=== PATIENT | male | born 1960 | race Caucasian/White ===

== ENCOUNTER 2016-11-17 16:22 | Inpatient (IN) | payer BC ==
--- NOTE | ~2016-11-17 | HP ---
History And Physical [id number] [place]. [address] NAME: MICH ATKINSON : 58 STATUS : ADM IN [facility]#: [id number] AGE: 56 ADM/REG DATE : 11/17/16 MR#: [id number] REPORT SERV DATE: 11/17/16 DICTATED BY: HAN LACY DATE: 11/17/16 REPORT STATUS : Draft TRANSCRIBED BY: MODCamron DATE: 11/17/16 DATE OF ADMISSION: 11/17/2016 ADMISSION DIAGNOSIS: Acute kidney injury. CHIEF COMPLAINT: Not feeling well over the past month. HISTORY OF PRESENT ILLNESS: Mr. Atkinson is a 56-year-old male with no previous medical history, who states that over the past month he has had a new job site in which he has been working long hours, 12 to 14 hours, dressed in heavy gear and has had a significant amount of sweating. He is a electric welder. He has been working seven days a week. After two weeks worth of this type of work, he also noted to have leg cramps. After two weeks, he could not work this hard any longer. He mentioned that he tried to just get better on his own. He has been trying to work in the last two weeks, but has not been doing very well, he possibly may have had the flu with some of the symptoms he underwent. He notes that there has never been no foamy urine, no urine that has been dark tea colored according to the . He went to an urgent care center which they noted his creatinine to be around 9, couple of days later that is when they called him with the results and told him to go to the emergency room. In the emergency room, he was found to have a creatinine of almost 16 with a bicarb of 11 and a potassium of 5.9. The patient is also very acidotic. PAST MEDICAL HISTORY: None. HOME MEDICATIONS: None. ALLERGIES: ASPIRIN. SOCIAL HISTORY: The patient is a electric welder. He is . He has a very remote history of smoking, occasional alcohol. No illicit drug use. Also of note, the patient was not taking NSAIDs prior to this. FAMILY HISTORY: The patient states his family history is essentially healthy. No chronic kidney disease: REVIEW OF SYSTEMS: All pertinent review of systems is reviewed and is otherwise negative. PHYSICAL EXAMINATION: VITAL SIGNS: Temperature 97.3, heart rate 80, blood pressure currently 201/105, respiratory rate 16. GENERAL: The patient is alert and oriented, no acute distress. HEENT: No JVD. No carotid bruits. NECK: Supple. PULMONARY: Lungs are clear to auscultation bilaterally, no wheezing. CARDIAC: Regular rate, no murmurs. ABDOMEN: Soft, nontender, nondistended. No bowel sounds, but there is also no bruits, no History And Physical [address] [address] NAME: MICH ATKINSON : 58 STATUS : ADM IN [facility]#: [id number] AGE: 56 ADM/REG DATE : 11/17/16 MR#: [id number] REPORT SERV DATE: 11/17/16 DICTATED BY: HAN LACY DATE: 11/17/16 REPORT STATUS : Draft TRANSCRIBED BY: MODCamron DATE: 11/17/16 guarding, no rebound. EXTREMITIES: Extremity is cold, adequate capillary refill. Peripheral pulses noted. No cyanosis. SKIN: No libido reticularis. LABORATORY EXAMINATION: No leukocytosis. Hemoglobin 10.4, platelet count 240. Potassium 5.9, bicarb 11, BUN 165, creatinine 15.6. Lipase 1250, pH 7.11, pCO2 of 22, PO2 of 105. Urinalysis shows no ketones, 50 of glucose, significant proteinuria greater than 500, occasional bacteria, no leukocyte or nitrite. IMAGING: None. ASSESSMENT AND PLAN: Mr. atkinson is a 56-year-old gentlemen with a past medical history noted above, who presents to the intensive care unit with hyperkalemia, chronic kidney disease, most likely with acute changes with acidosis, uremia. 1. Acute kidney injury: As his urinalysis shows proteinuria, moderate blood, he most likely has chronic disease and now has manifested with significant hypertension and the findings of acute kidney failure. Nephrology has seen the patient. We will conduct a thorough workup. The Patient is getting IV fluids 150 mL of normal saline. We have placed a vascular access catheter to start dialysis now. We will check the renal ultrasound to rule out any hydronephrosis. Control blood pressure. 2. Hypertension: As noted above. 3. Hyperkalemia: As noted above. 4. Anemia: Most likely secondary to chronic kidney disease. 5. Diet: Advance diet as tolerated. 6. Code status: The patient is currently full code. HFQ/MODL Han Lacy MD / [id number] CC: Han Lacy MD
--- NOTE | ~2016-11-17 | IDS ---
Interim Discharge Summary [facility] [address] [place]. [address] NAME: MICH ATKINSON : 58 STATUS : ADM IN [facility]#: [id number] AGE: 56 ADM/REG DATE : 11/17/16 MR#: [id number] REPORT SERV DATE: 11/22/16 DICTATED BY: DATE: REPORT STATUS : Draft TRANSCRIBED BY: MODL DATE: 11/21/16 ADMISSION DATE: 11/17/2016 DISCHARGE DATE: The patient was admitted to the [facility], transferred out of the Intensive Care Unit the evening of November 18 with care assumed by the Hospitalist Service on November 19. CONSULTANTS: Include Nephrology. CURRENT DIAGNOSES: 1. Hemodialysis, acute kidney injury versus more likely end-stage renal disease at diagnosis. 2. Uremia. 3. Metabolic acidosis. 4. Hypertension. 5. Hyperkalemia. 6. Anemia-likely due to chronic kidney disease. 7. Vitamin D deficiency. 8. Proteinuria and microscopic hematuria. 9. Secondary hyperparathyroidism. IMAGING: Renal ultrasound November 17, demonstrating diffuse marked increased echogenicity of the renal cortex consistent with medical renal disease. Benign cysts bilaterally. PROCEDURES: Vas-Cath placement November 17 for emergent initiation of hemodialysis. Subsequent dialysis catheter placement on November 21. PERTINENT LABS: Blood gas at admission pH 7.11, pCO2 22, PO2 105, oxygen saturation 96% on room air. Initial potassium 5.9, now 4.8, initial bicarbonate 11, now 22, initial creatinine 15.6, now 9.6, glucose values normal. Calcium at 7, phosphorus 10.8, now 7.9, liver enzymes normal, lipase 1775, ferritin 794, folate 18.6, B12 1041. Complement levels were normal. Hemoglobin A1c 5.7, lactate negative, PTH 370, vitamin D 17, serum protein electrophoresis, immunofixation with mild lambda restriction. Hepatitis serologies negative. HIV negative. White blood cell count normal, hemoglobin values ranging from 7.7 to 7.9. Platelets normal. Anti-GBM negative. ANCA panel pending. Double-stranded DNA pending. Urinalysis with occasional bacteria. Spot urine protein 127.3, with urine creatinine 73. BRIEF HISTORY: For full details please see the previously dictated history of present illness by Dr. Soto and race relations adviser consult note by Dr. Julien Mckeon. This is a 56-year-old, white male with no known previous medical history, who does not see a physician with any regularity. He went to a walk-in clinic, for "feeling bad." Labs there revealed a creatinine of 10 and a BUN of 96. The patient was instructed to go to the emergency department. He failed to follow up in the ER until approximately one week later, Interim Discharge Summary [address] [address] NAME: MICH ATKINSON : 58 STATUS : ADM IN [facility]#: [id number] AGE: 56 ADM/REG DATE : 11/17/16 MR#: [id number] REPORT SERV DATE: 11/22/16 DICTATED BY: DATE: REPORT STATUS : Draft TRANSCRIBED BY: MODL DATE: 11/21/16 when he was experiencing progressive weakness, leg cramps. On presentation to the ER, he was noted to have severe anion gap metabolic acidosis with a pH of 7.11 and a bicarbonate of 11. BUN was in excess of 165 with a creatinine of 15. Urinalysis showed moderate blood, and protein greater than 500 mg/dL. He had hyperkalemia and was admitted to the [facility] with Nephrology consultation for emergent hemodialysis. HOSPITAL COURSE: The patient was admitted to the Intensive Care Unit on November 17 and , started on dialysis, and stabilized. He was discharged to the floor the evening of November 18 and the hospitalist service assumed care on November 19. The patient has continued to dialyze, per Nephrology since then. He has multiple send out labs pending including ANCA and double stranded DNA, as well as a 24-hour urine protein and 24-hour urine protein electrophoresis. His renal ultrasound demonstrates probable long-standing chronic kidney disease. The exact etiology is unclear, but he is felt to have possible hypertensive nephrosclerosis per the Nephrology team. He has been initiated on blood pressure medications, phosphate binders, and instructed on the importance of adherence to a renal diet. His was instructed about this as well. He had a dialysis catheter placed today and outpatient hemodialysis planning is pending. The ultimate discharge disposition will be per Nephrology. FIONA/RODRIGO Rolando Riggins M.D. / [id number] CC: Rolando Riggins M.D.
--- NOTE | ~2016-11-17 | OP ---
Record Of Operation [facility] [address] [place]. [address] NAME: MICH ATKINSON : 58 STATUS : ADM IN [facility]#: [id number] AGE: 56 ADM/REG DATE : 11/17/16 MR#: [id number] REPORT SERV DATE: 11/22/16 DICTATED BY: CLAUDIO ARVIZU DATE: 11/21/16 REPORT STATUS : Draft TRANSCRIBED BY: MODL DATE: 11/21/16 DATE OF PROCEDURE: 11/21/2016 STEWARD/STEWARDESS DECK: None. PREPROCEDURE DIAGNOSIS: End-stage renal disease. POSTPROCEDURE DIAGNOSIS: End-stage renal disease. PROCEDURE PERFORMED: Placement of right IJ PermCath, 19 cm curved HemoSplit catheter. ANESTHESIA: MAC and local. SPECIMENS: None. ESTIMATED BLOOD LOSS: Minimal. COMPLICATIONS: None. DESCRIPTION OF PROCEDURE: The patient was brought to the operating room and placed supine position on the operating room table. The patient had a MAC anesthetic without complications. The right neck and chest were prepped and draped in sterile fashion. A time out was performed. Identified the correct patient, procedure, and site. We began by using ultrasound to identify the right IJ vein. It was compressible and free of thrombus. We anesthetized the skin and accessed the vein under ultrasound guidance. Once we had access, a wire was passed down through the cardiac chambers into the IVC and the needle was removed. We selected a site for catheter exit, and anesthetized from the chest exit site all the way to the neck entry site. We made an incision on the chest and then tunneled a 19 cm curved catheter from the chest site to the neck site. We then used a series of dilators to dilate up the skin and vein tract at the neck. We ended by placing the break away sheath over the wire into position under fluoroscopy and removing the wire and dilator. The catheter was then inserted into the sheath and advanced into position. Once in position, the sheath was split and removed while keeping the catheter in place. The catheter was in good position with no neck kink, the catheter aspirated and flushed with ease. The catheter was loaded with heparin and end caps were placed appropriately. We affixed the catheter to the chest wall using interrupted nylon suture. The skin at the neck site was closed with interrupted Monocryl and Dermabond. Sterile dressing was applied. The patient tolerated the procedure well. He was awakened and transferred to recovery in stable condition. NIEVES/RODRIGO Claudio Arvizu MD Record Of [address] [address] NAME: MICH ATKINSON : 58 STATUS : ADM IN PAT#: [id number] AGE: 56 ADM/REG DATE : 11/17/16 MR#: [id number] REPORT SERV DATE: 11/22/16 DICTATED BY: CLAUDIO ARVIZU DATE: 11/21/16 REPORT STATUS : Draft TRANSCRIBED BY: RODRIGO DATE: 11/21/16 / [id number] CC: Claudio Arvizu MD
--- NOTE | ~2016-11-17 | CN ---
Consultation Report [facility] [address] [place]. [address] NAME: MICH ATKINSON : 58 STATUS : ADM [facility]#: [id number] AGE: 56 ADM/REG DATE : 11/17/16 MR#: [id number] REPORT SERV DATE: 11/17/16 DICTATED BY: JULIEN MCKEON DATE: 11/17/16 REPORT STATUS : Draft TRANSCRIBED BY: MODCamron DATE: 11/17/16 NEPHROLOGY CONSULT DATE OF CONSULTATION: 11/17/2016 CHIEF COMPLAINT: Acute kidney insufficiency. HISTORY OF PRESENT ILLNESS: Mr. Atkinson is a 56-year-old white male, who presented to walk-in clinic approximately one week ago with complaints of "feeling bad." Workup at the walk-in clinic revealed that he had a creatinine of approximately 10 and a BUN of 96. He was noted at this time to have a glucose of 97, total bilirubin of 0.2, hemoglobin 9.1, and platelet counts were within normal limits. The patient was instructed to go the ER. The patient refused to go to the ER until today approximately one week later. The patient generally has not seen a physician all his life. He was feeling bad for approximately two weeks. He denies any gross hematuria, kidney stones, flank pain, or rash. He does not take any over- the-counter medications or prescriptions. He denies any ingestions. On presentation here to the ER, the patient is afebrile, hemodynamically stable. However, he is noted to have severe anion gap metabolic acidosis with a pH of 7.11. He denies any falls, trauma, or ingestions. He does not have a known history of diabetes. Denies any abdominal pain. He was also noted to have a creatinine of approximately 15 and BUN of 165. Urinalysis shows moderate blood and protein greater than 500 mg/dL. PAST MEDICAL HISTORY: None. PAST SURGICAL HISTORY: None. FAMILY MEDICAL HISTORY: No known renal disease. ALLERGIES: NO KNOWN DRUG ALLERGIES. HOME MEDICATIONS: None. SOCIAL HISTORY: . Lives in [facility]. FAMILY MEDICAL HISTORY: No known kidney disease. REVIEW OF SYSTEMS: Complete review of systems was done and negative otherwise as stated in the HPI. PHYSICAL EXAMINATION: VITAL SIGNS: Temperature is 97.7, pulse is 85, and blood pressure is 185/79. GENERAL: He is in no apparent distress, but has some mild shaking. NEURO: He is alert and oriented x3. He moves all 4 extremities. SKIN: No petechiae, purpura, or rash noted. Consultation Report [address] [place]. [address] NAME: MICH ATKINSON : 58 STATUS : ADM [facility]#: [id number] AGE: 56 ADM/REG DATE : 11/17/16 MR#: [id number] REPORT SERV DATE: 11/17/16 DICTATED BY: JULIEN MCKEON. DATE: 11/17/16 REPORT STATUS : Draft TRANSCRIBED BY: MODCamron DATE: 11/17/16 NECK: No JVP or lymphadenopathy. Trachea is midline. CARDIOVASCULAR: Regular rate and rhythm. No gallops, rubs, or murmurs. RESPIRATORY: Clear to auscultation bilaterally without increased respiratory rate. ABDOMEN: Soft, nontender, nondistended. Positive bowel sounds. EXTREMITIES: No peripheral edema. PSYCH: Appropriate mood and affect. VASCULAR: +2 radial and dorsal pedal pulses. ASSESSMENT: 1. Acute kidney insufficiency secondary to unknown etiology. Primary etiologies in the differential diagnosis at this time include obstructive uropathy, rapidly progressive glomerulonephritis, or progressive to chronic kidney disease due to some chronic disease, nephrotic syndrome or nephritic syndrome, or hypertensive nephrosclerosis. The patient denies any ingestions. 2. Proteinuria and microscopic hematuria. 3. Hypertension. 4. Hyperkalemia. PLAN: 1. Emergent hemodialysis for maintenance hemodialysis tomorrow. 2. Bicarb, IV calcium, insulin, D50. 3. Lab, see orders. 4. Renal ultrasound. Discussed with Dr. Lacy, who has graciously accepted to place Vas-Cath for hemodialysis. SGG/MODL Julien Mckeon M.D. / [id number] CC: Charles Lacy MD UNKNOWN
--- NOTE | ~2016-11-17 | DS ---
Discharge Summary [facility] [address] [facility] [place]. [address] NAME: MICH ATKINSON : 58 STATUS : DIS IN PAT#: [id number] AGE: 56 ADM/REG DATE : 11/17/16 MR#: [id number] REPORT SERV DATE: 11/23/16 DICTATED BY: TANI DOWNING DATE: 11/22/16 REPORT STATUS : Draft TRANSCRIBED BY: MODL DATE: 11/22/16 ADMISSION DATE: 11/17/2016 DISCHARGE DATE: 11/22/2016 DISCHARGE DIAGNOSES: 1. Hemodialysis; acute kidney injury versus end-stage renal disease with unknown etiology at this time. 2. Uremia, now resolved. 3. Metabolic acidosis, now resolved. 4. Hypertension. 5. Hyperkalemia, now resolved. 6. Anemia, most likely due to chronic kidney disease. 7. Vitamin D deficiency. 8. Proteinuria and microscopic hematuria. 9. Secondary hyperparathyroidism. CONSULTANTS DURING THIS HOSPITALIZATION: Dr. Luis Felipe Galvin, of Nephrology. IMAGING: Please refer to the interim summary dictated by Dr. Rolando Riggins. PROCEDURES: Please refer to the interim summary dictated by Dr. Riggins. BRIEF HISTORY OF PRESENT ILLNESS: The patient is a 56-year-old male with no known previous medical history; who does not see a physician on any regular basis; went to a walk-in clinic feeling bad. Labs there revealed a creatinine of 10 and a BUN of 96. This patient was instructed to go to the Emergency Department. He failed to follow up in the ER until approximately one week later when he was experiencing progressive weakness, leg cramps, so he was admitted. For detailed history and physical exam, please see note dictated by Dr. Charles Lacy on 11/18/2015. HOSPITAL COURSE: After being admitted to the hospital, this patient was first placed in the intensive care unit for correction of his potassium, and Nephrology was consulted. Then, this patient was transitioned to the floor and cared for by Dr. Rolando Riggins. Please refer to interim summary dictated by Dr. Riggins. I took over this patient's care on 11/22/2016. This patient was doing well. He has had hemodialysis. His outpatient hemodialysis was scheduled Monday, Monday, and Monday. Dr. Galvin saw the patient in followup and recommended that he could go home with outpatient dialysis and follow up in the Nephrology Clinic. This patient remained stable otherwise and is being discharged in stable condition. DISCHARGE DISPOSITION: Home. DISCHARGE ACTIVITY: As tolerated. DISCHARGE DIET: Low-sodium diet. Discharge Summary [id number] [place]. [address] NAME: MICH ATKINSON : 58 STATUS : DIS IN PAT#: [id number] AGE: 56 ADM/REG DATE : 11/17/16 MR#: [id number] REPORT SERV DATE: 11/23/16 DICTATED BY: TANI DOWNING DATE: 11/22/16 REPORT STATUS : Draft TRANSCRIBED BY: RODRIGO DATE: 11/22/16 DISCHARGE MEDICATIONS: Norvasc 5 mg once daily, PhosLo 667 mg two tablets with meals, labetalol 100 mg twice daily, and Nephro-Vites 1 capsule p.o. with meals. DISCHARGE FOLLOWUP: With [facility] as scheduled with hemodialysis as scheduled. More than 30 minutes were spent planning this patient's discharge, reconciling medications, writing prescriptions, discussing hospital care, and followup with the patient and documenting this discharge. MIKEL/RODRIGO Tani Downing M.D. / [id number] CC: Eden Maharaj M.D. Donald Franklin Jr, M.D.
--- NOTE | ~2016-11-17 | OP ---
Record Of Operation [facility] [address] [place]. [address] NAME: MICH ATKINSON : 58 STATUS : ADM IN [facility]#: [id number] AGE: 56 ADM/REG DATE : 11/17/16 MR#: [id number] REPORT SERV DATE: 11/17/16 DICTATED BY: CHARLES CAMPA DATE: 11/17/16 REPORT STATUS : Draft TRANSCRIBED BY: MODL DATE: 11/17/16 DATE OF PROCEDURE: 11/17/2016 PROCEDURE: Vas-Cath note. INDICATION FOR PROCEDURE: Vascular access for Vas-Cath placement secondary to the fact that the patient has acute what looks to be on chronic kidney failure. PREOPERATIVE DIAGNOSIS: Acute kidney failure. POSTOPERATIVE DIAGNOSIS: Acute kidney failure. PROCEDURE NOTE: The patient was in the intensive care unit, upon discussing the site of insertion, it is our hopes that this patient has temporary access for dialysis, he may be a true end-stage kidney disease patient, and therefore, did not want to go in the subclavian or in the IJ position. We then prepped and draped the right femoral vein in standard fashion. Using ultrasound guidance, after the instillation of lidocaine, we found the vein and placed the guidewire with no difficulty. We dilated using the two dilators in the kit. We then prepped Vas-Cath through the guidewire and in proper position. We had return of venous blood. We then instilled the proper amount of heparin to lock those in its place. We then placed the dressings over the Vas-Cath. OUTCOME: Successful Vas-Cath access into the right femoral region. HFQ/RODRIGO Charles Campa MD / [id number] CC: Charles Campa MD
[2016-11-17 14:04] LABS: BASOPHILS 0.3 %; BASOPHILS ABSOLUTE 0.02 10/3/uL (0.0-0.16); EOSINOPHILS 1.1 %; EOSINOPHILS ABSOLUTE 0.07 10/3/uL (0.0-0.53); HEMOGLOBIN 10.4 g/dL (13.6-17.8); IMMATURE GRANULOCYTES 0.5 %; IMMATURE GRANULOCYTES ABSOLUTE 0.03 10/3/uL (0.0-0.11); LYMPHOCYTES 9.9 %; LYMPHOCYTES ABSOLUTE 0.64 10/3/uL (0.67-4.30); MANUAL DIFF NO %; MEAN CORPUS HGB CONC 34.7 g/dL (32.0-36.0); MEAN CORPUSCULAR HEMOGLOB 29.7 pg (26.0-34.0); MEAN CORPUSCULAR VOLUME 85.7 fL (80-100); MEAN PLATELET VOLUME 8.5 fL (9.2-13.0); MONOCYTES 5.3 %; MONOCYTES ABSOLUTE 0.34 10/3/uL (0.21-1.20); NEUTROPHILS 82.9 %; NEUTROPHILS ABSOLUTE 5.34 10/3/uL (2.02-8.40); PLATELET COUNT 240 10/3/uL (150-400); RBC DISTRIBUTION WIDTH 13.4 % (12.0-16.0); WHITE BLOOD CELLS 6.4 10/3/uL (4.5-10.5)
[2016-11-17 14:19] LABS: ASCORBIC ACID (UR NOT ORDER) NEG (NEG); BILIRUBIN, URINE NEGATIVE (NEG); ER URINALYSIS TAT 0 Hrs 19 Mins; KETONE, URINE NEGATIVE (NEG); LEUKOCYTE ESTERASE(NOT OR NEG (NEG); NITRITE (URINE) NEG (NEG); WBC (NOT ORDERED) (RFLEX) 3 (0-5)
[2016-11-17 14:20] LABS: A/G RATIO 0.7 (0.7-1.9); ALBUMIN 3.5 G/DL (3.5-5.0); ALKALINE PHOSPHATASE 66 U/L (45-117); CALCIUM, SERUM 8.2 MG/DL (8.5-10.4); CHLORIDE, SERUM 108 MMOL/L (96-112); GFR AFRICAN AMERICAN 3 ML/MIN (>=60); GFR NON AFRICAN AMERICAN 3 ML/MIN (>=60); GLOBULIN 4.7 G/DL (2.5-4.1); GLUCOSE, SERUM 108 MG/DL (60-99); POTASSIUM, SERUM 5.9 MMOL/L (3.5-5.3); SGOT(AST) 5 U/L (5-40); SGPT(ALT) 17 U/L (5-65); SODIUM, SERUM 138 MMOL/L (135-148); TOTAL BILIRUBIN 0.3 MG/DL (0-1.2); TOTAL PROTEIN 8.2 G/DL (6.0-8.5)
[2016-11-17 14:35] LABS: BUN (BLOOD UREA NITROGEN) 165 MG/DL (6-23); CO2 (CARBON DIOXIDE) 11 MMOL/L (24-34)
[2016-11-17 15:23] LABS: ALLENS TEST Pos; BE (BASE EXCESS) -20.9 MEQ/L (0 +/- 2.5); CARBOXYHEMOGLOBIN 0.7 % (0-3); HCO3 (ACTUAL BICARBONATE) 6.9 MEQ/L (23-27); HEMOBLOGIN CONTENT 10.6 G/DL (14-18); INSTRUMENT SERIAL # 8087; METHEMOGLOBIN 0.3 % (0-3); O2 CONTENT 14.4 VOL% (18-24); OPERATOR ID 14335; PCO2 (CO2 TENSION) 22 MMHG (35-45); PO2 (O2 TENSION) 105 MMHG (79-93); SAMPLE Arterial; pH 7.11 (7.37-7.43)
[~2016-11-17 16:22] MED LIST: DANDELION ROOT PO; GARLIC PO; MILK THISTLE PO; OTC IRON TABLET PO; PRIN10 PO; RED CLOVER PO; [UNRECOGNIZED DRUG - REMARK] PO
[2016-11-17 21:38] LABS: CALCIUM, SERUM 7.7 MG/DL (8.5-10.4); CHLORIDE, SERUM 108 MMOL/L (96-112); GFR AFRICAN AMERICAN 4 ML/MIN (>=60); GFR NON AFRICAN AMERICAN 3 ML/MIN (>=60); GLUCOSE, SERUM 97 MG/DL (60-99); SODIUM, SERUM 141 MMOL/L (135-148)
[2016-11-17 21:40] LABS: BUN (BLOOD UREA NITROGEN) 158 MG/DL (6-23); CO2 (CARBON DIOXIDE) 11 MMOL/L (24-34)
[2016-11-18 03:22] LABS: ALLENS TEST Pos; BE (BASE EXCESS) -16.7 MEQ/L (0 +/- 2.5); CARBOXYHEMOGLOBIN 0.5 % (0-3); HCO3 (ACTUAL BICARBONATE) 9.7 MEQ/L (23-27); HEMOBLOGIN CONTENT 9.2 G/DL (14-18); INSTRUMENT SERIAL # 8083; METHEMOGLOBIN 0.2 % (0-3); O2 CONTENT 12.6 VOL% (18-24); OPERATOR ID 13415; PCO2 (CO2 TENSION) 25 MMHG (35-45); PO2 (O2 TENSION) 99 MMHG (79-93); SAMPLE Arterial; pH 7.21 (7.37-7.43)
[2016-11-18 06:19] LABS: CALCIUM, SERUM 7.2 MG/DL (8.5-10.4); CHLORIDE, SERUM 107 MMOL/L (96-112); CPK (IF ELEVATED MB BANDS) 115 U/L (0-200); POTASSIUM, SERUM 4.7 MMOL/L (3.5-5.3); SODIUM, SERUM 142 MMOL/L (135-148)
[2016-11-18 06:36] LABS: BASOPHILS 0.2 %; BASOPHILS ABSOLUTE 0.01 10/3/uL (0.0-0.16); CO2 (CARBON DIOXIDE) 15 MMOL/L (24-34); EOSINOPHILS 2.6 %; EOSINOPHILS ABSOLUTE 0.11 10/3/uL (0.0-0.53); LYMPHOCYTES 14.1 %; LYMPHOCYTES ABSOLUTE 0.59 10/3/uL (0.67-4.30); MEAN CORPUS HGB CONC 35.5 g/dL (32.0-36.0); MEAN CORPUSCULAR HEMOGLOB 29.8 pg (26.0-34.0); MEAN CORPUSCULAR VOLUME 84.1 fL (80-100); MEAN PLATELET VOLUME 8.5 fL (9.2-13.0); MONOCYTES 12.6 %; MONOCYTES ABSOLUTE 0.53 10/3/uL (0.21-1.20); NEUTROPHILS 70.5 %; NEUTROPHILS ABSOLUTE 2.95 10/3/uL (2.02-8.40); PLATELET COUNT 210 10/3/uL (150-400); RBC DISTRIBUTION WIDTH 13.1 % (12.0-16.0); WHITE BLOOD CELLS 4.2 10/3/uL (4.5-10.5)
[2016-11-18 06:38] LABS: ALBUMIN 2.7 G/DL (3.5-5.0); GFR AFRICAN AMERICAN 4 ML/MIN (>=60); GFR NON AFRICAN AMERICAN 3 ML/MIN (>=60); GLUCOSE, SERUM 132 MG/DL (60-99)
[2016-11-18 06:41] LABS: HEMATOCRIT 21.7 % (40.0-51.0); HEMOGLOBIN 7.7 g/dL (13.6-17.8); RED CELL COUNT 2.58 10/6/uL (4.7-6.1)
[2016-11-18 06:42] LABS: MANUAL DIFF NO %
[2016-11-18 06:50] LABS: COMPLEMENT C3 107 MG/DL (75-161); COMPLEMENT C4 28.6 MG/DL (16-47); PHOSPHORUS, SERUM 10.8 MG/DL (2.5-4.5)
[2016-11-18 06:53] LABS: BUN (BLOOD UREA NITROGEN) 153 MG/DL (6-23)
[2016-11-18 09:43] LABS: HEPATITIS B SURFACE ANTIGEN NON-REACTIVE (NON-REACT)
[2016-11-18 10:10] LABS: HEPATITIS C ANTIBODY NON-REACTIVE (NON-REACT)
[2016-11-18 10:11] LABS: HEPATITIS B CORE AB IGM NON-REACTIVE (NON-REAC); HIV COMBO NON-REACTIVE (NON REAC)
[2016-11-18 10:12] LABS: HEP A ANTIBODY IGM NON-REACTIVE (NON-REACT)
[2016-11-18 15:11] LABS: BASOPHILS 0.2 %; BASOPHILS ABSOLUTE 0.01 10/3/uL (0.0-0.16); EOSINOPHILS 0.8 %; EOSINOPHILS ABSOLUTE 0.04 10/3/uL (0.0-0.53); HEMATOCRIT 21.7 % (40.0-51.0); HEMOGLOBIN 7.7 g/dL (13.6-17.8); LYMPHOCYTES 7.5 %; LYMPHOCYTES ABSOLUTE 0.36 10/3/uL (0.67-4.30); MEAN CORPUS HGB CONC 35.5 g/dL (32.0-36.0); MEAN CORPUSCULAR HEMOGLOB 29.8 pg (26.0-34.0); MEAN CORPUSCULAR VOLUME 84.1 fL (80-100); MEAN PLATELET VOLUME 8.2 fL (9.2-13.0); MONOCYTES 12.7 %; MONOCYTES ABSOLUTE 0.61 10/3/uL (0.21-1.20); NEUTROPHILS 78.8 %; NEUTROPHILS ABSOLUTE 3.78 10/3/uL (2.02-8.40); PLATELET COUNT 178 10/3/uL (150-400); RBC DISTRIBUTION WIDTH 13.1 % (12.0-16.0); RED CELL COUNT 2.58 10/6/uL (4.7-6.1); WHITE BLOOD CELLS 4.8 10/3/uL (4.5-10.5)
[2016-11-18 15:13] LABS: MANUAL DIFF NO %
[2016-11-19 06:03] LABS: BASOPHILS 0.2 %; BASOPHILS ABSOLUTE 0.01 10/3/uL (0.0-0.16); HEMATOCRIT 22.7 % (40.0-51.0); HEMOGLOBIN 7.9 g/dL (13.6-17.8); IMMATURE GRANULOCYTES 0.2 %; IMMATURE GRANULOCYTES ABSOLUTE 0.01 10/3/uL (0.0-0.11); LYMPHOCYTES 18.4 %; LYMPHOCYTES ABSOLUTE 0.94 10/3/uL (0.67-4.30); MEAN CORPUS HGB CONC 34.8 g/dL (32.0-36.0); MEAN CORPUSCULAR HEMOGLOB 29.6 pg (26.0-34.0); MEAN PLATELET VOLUME 8.5 fL (9.2-13.0); MONOCYTES 11.7 %; NEUTROPHILS 67.5 %; NEUTROPHILS ABSOLUTE 3.45 10/3/uL (2.02-8.40); PLATELET COUNT 201 10/3/uL (150-400); RBC DISTRIBUTION WIDTH 13.1 % (12.0-16.0); RED CELL COUNT 2.67 10/6/uL (4.7-6.1); WHITE BLOOD CELLS 5.1 10/3/uL (4.5-10.5)
[2016-11-19 06:05] LABS: MANUAL DIFF NO %
[2016-11-19 06:24] LABS: ALBUMIN 2.7 G/DL (3.5-5.0); CALCIUM, SERUM 7.2 MG/DL (8.5-10.4); CHLORIDE, SERUM 106 MMOL/L (96-112); POTASSIUM, SERUM 4.1 MMOL/L (3.5-5.3); SODIUM, SERUM 143 MMOL/L (135-148)
[2016-11-19 06:26] LABS: CO2 (CARBON DIOXIDE) 21 MMOL/L (24-34); GFR AFRICAN AMERICAN 6 ML/MIN (>=60); GFR NON AFRICAN AMERICAN 5 ML/MIN (>=60); GLUCOSE, SERUM 105 MG/DL (60-99); PHOSPHORUS, SERUM 8.3 MG/DL (2.5-4.5)
[2016-11-19 06:27] LABS: BUN (BLOOD UREA NITROGEN) 102 MG/DL (6-23)
[2016-11-19 06:47] LABS: INTACT PTH (ICMA) 370.3 PG/ML (10.0-65.0)
[2016-11-19 13:57] LABS: BASOPHILS 0.2 %; BASOPHILS ABSOLUTE 0.01 10/3/uL (0.0-0.16); EOSINOPHILS 1.5 %; EOSINOPHILS ABSOLUTE 0.07 10/3/uL (0.0-0.53); HEMATOCRIT 21.7 % (40.0-51.0); HEMOGLOBIN 7.6 g/dL (13.6-17.8); IMMATURE GRANULOCYTES 0.2 %; IMMATURE GRANULOCYTES ABSOLUTE 0.01 10/3/uL (0.0-0.11); LYMPHOCYTES 14.3 %; LYMPHOCYTES ABSOLUTE 0.66 10/3/uL (0.67-4.30); MEAN CORPUSCULAR HEMOGLOB 29.9 pg (26.0-34.0); MEAN CORPUSCULAR VOLUME 85.4 fL (80-100); MEAN PLATELET VOLUME 8.7 fL (9.2-13.0); MONOCYTES 12.2 %; MONOCYTES ABSOLUTE 0.56 10/3/uL (0.21-1.20); NEUTROPHILS 71.6 %; NEUTROPHILS ABSOLUTE 3.29 10/3/uL (2.02-8.40); PLATELET COUNT 183 10/3/uL (150-400); RED CELL COUNT 2.54 10/6/uL (4.7-6.1); WHITE BLOOD CELLS 4.6 10/3/uL (4.5-10.5)
[2016-11-19 14:03] LABS: MANUAL DIFF NO %
[2016-11-19 14:16] LABS: ALBUMIN 2.8 G/DL (3.5-5.0); BUN (BLOOD UREA NITROGEN) 101 MG/DL (6-23); CALCIUM, SERUM 6.6 MG/DL (8.5-10.4); CHLORIDE, SERUM 103 MMOL/L (96-112); CO2 (CARBON DIOXIDE) 23 MMOL/L (24-34); GFR AFRICAN AMERICAN 6 ML/MIN (>=60); GFR NON AFRICAN AMERICAN 5 ML/MIN (>=60); GLUCOSE, SERUM 148 MG/DL (60-99); PHOSPHORUS, SERUM 7.7 MG/DL (2.5-4.5); POTASSIUM, SERUM 4.2 MMOL/L (3.5-5.3); SODIUM, SERUM 139 MMOL/L (135-148)
[2016-11-19 21:07] LABS: GLOMERULAR BASEMENT MEMBRANE <0.2 AI (<1.0)
[2016-11-20 06:48] LABS: BASOPHILS 0.5 %; BASOPHILS ABSOLUTE 0.03 10/3/uL (0.0-0.16); EOSINOPHILS ABSOLUTE 0.17 10/3/uL (0.0-0.53); HEMATOCRIT 23.1 % (40.0-51.0); HEMOGLOBIN 7.8 g/dL (13.6-17.8); IMMATURE GRANULOCYTES 0.2 %; IMMATURE GRANULOCYTES ABSOLUTE 0.01 10/3/uL (0.0-0.11); LYMPHOCYTES 17.8 %; LYMPHOCYTES ABSOLUTE 1.01 10/3/uL (0.67-4.30); MEAN CORPUS HGB CONC 33.8 g/dL (32.0-36.0); MEAN CORPUSCULAR HEMOGLOB 29.2 pg (26.0-34.0); MEAN CORPUSCULAR VOLUME 86.5 fL (80-100); MEAN PLATELET VOLUME 8.4 fL (9.2-13.0); MONOCYTES 17.3 %; MONOCYTES ABSOLUTE 0.98 10/3/uL (0.21-1.20); NEUTROPHILS 61.2 %; NEUTROPHILS ABSOLUTE 3.47 10/3/uL (2.02-8.40); PLATELET COUNT 175 10/3/uL (150-400); RBC DISTRIBUTION WIDTH 13.2 % (12.0-16.0); RED CELL COUNT 2.67 10/6/uL (4.7-6.1); WHITE BLOOD CELLS 5.7 10/3/uL (4.5-10.5)
[2016-11-20 06:49] LABS: MANUAL DIFF NO %
[2016-11-20 07:08] LABS: ALBUMIN 2.7 G/DL (3.5-5.0); BUN (BLOOD UREA NITROGEN) 67 MG/DL (6-23); CALCIUM, SERUM 7.2 MG/DL (8.5-10.4); CHLORIDE, SERUM 102 MMOL/L (96-112); CO2 (CARBON DIOXIDE) 24 MMOL/L (24-34); CREATININE 8.36 MG/DL (0.70-1.30); GFR AFRICAN AMERICAN 7 ML/MIN (>=60); GFR NON AFRICAN AMERICAN 6 ML/MIN (>=60); GLUCOSE, SERUM 98 MG/DL (60-99); PHOSPHORUS, SERUM 7.1 MG/DL (2.5-4.5); POTASSIUM, SERUM 4.3 MMOL/L (3.5-5.3); SODIUM, SERUM 139 MMOL/L (135-148)
[2016-11-21 08:08] LABS: BASOPHILS 0.4 %; BASOPHILS ABSOLUTE 0.03 10/3/uL (0.0-0.16); EOSINOPHILS ABSOLUTE 0.28 10/3/uL (0.0-0.53); HEMATOCRIT 22.1 % (40.0-51.0); HEMOGLOBIN 7.7 g/dL (13.6-17.8); IMMATURE GRANULOCYTES 0.1 %; IMMATURE GRANULOCYTES ABSOLUTE 0.01 10/3/uL (0.0-0.11); LYMPHOCYTES 15.4 %; LYMPHOCYTES ABSOLUTE 1.07 10/3/uL (0.67-4.30); MEAN CORPUS HGB CONC 34.8 g/dL (32.0-36.0); MEAN CORPUSCULAR HEMOGLOB 29.8 pg (26.0-34.0); MEAN CORPUSCULAR VOLUME 85.7 fL (80-100); MEAN PLATELET VOLUME 8.9 fL (9.2-13.0); MONOCYTES ABSOLUTE 1.18 10/3/uL (0.21-1.20); NEUTROPHILS 63.1 %; NEUTROPHILS ABSOLUTE 4.37 10/3/uL (2.02-8.40); PLATELET COUNT 191 10/3/uL (150-400); RED CELL COUNT 2.58 10/6/uL (4.7-6.1); WHITE BLOOD CELLS 6.9 10/3/uL (4.5-10.5)
[2016-11-21 08:09] LABS: MANUAL DIFF NO %
[2016-11-21 08:44] LABS: ALBUMIN 2.8 G/DL (3.5-5.0); BUN (BLOOD UREA NITROGEN) 83 MG/DL (6-23); CALCIUM, SERUM 7.3 MG/DL (8.5-10.4); CHLORIDE, SERUM 101 MMOL/L (96-112); CO2 (CARBON DIOXIDE) 22 MMOL/L (24-34); CREATININE 9.66 MG/DL (0.70-1.30); FERRITIN 794 NG/ML (26-388); GFR AFRICAN AMERICAN 6 ML/MIN (>=60); GFR NON AFRICAN AMERICAN 5 ML/MIN (>=60); GLUCOSE, SERUM 93 MG/DL (60-99); PHOSPHORUS, SERUM 7.9 MG/DL (2.5-4.5); POTASSIUM, SERUM 4.8 MMOL/L (3.5-5.3); SODIUM, SERUM 139 MMOL/L (135-148)
[2016-11-21 08:45] LABS: FOLATE 18.6 NG/ML (>5.2)
[2016-11-21 23:19] LABS: ANCA <1:20 (()); MYELOPEROXIDASE ANTIBODY 0.3 AI (<1.0); PROTEINASE 3 ANTIBODY <0.2 AI (<1.0)
[2016-11-22 09:10] LABS: BASOPHILS 0.4 %; BASOPHILS ABSOLUTE 0.03 10/3/uL (0.0-0.16); EOSINOPHILS ABSOLUTE 0.41 10/3/uL (0.0-0.53); HEMATOCRIT 22.7 % (40.0-51.0); HEMOGLOBIN 7.7 g/dL (13.6-17.8); IMMATURE GRANULOCYTES 0.4 %; IMMATURE GRANULOCYTES ABSOLUTE 0.03 10/3/uL (0.0-0.11); LYMPHOCYTES 14.9 %; LYMPHOCYTES ABSOLUTE 1.02 10/3/uL (0.67-4.30); MEAN CORPUS HGB CONC 33.9 g/dL (32.0-36.0); MEAN CORPUSCULAR HEMOGLOB 29.4 pg (26.0-34.0); MEAN CORPUSCULAR VOLUME 86.6 fL (80-100); MEAN PLATELET VOLUME 8.8 fL (9.2-13.0); MONOCYTES 13.9 %; MONOCYTES ABSOLUTE 0.95 10/3/uL (0.21-1.20); NEUTROPHILS 64.4 %; NEUTROPHILS ABSOLUTE 4.41 10/3/uL (2.02-8.40); PLATELET COUNT 211 10/3/uL (150-400); RBC DISTRIBUTION WIDTH 12.7 % (12.0-16.0); RED CELL COUNT 2.62 10/6/uL (4.7-6.1); WHITE BLOOD CELLS 6.9 10/3/uL (4.5-10.5)
[2016-11-22 09:17] LABS: MANUAL DIFF NO %
[2016-11-22 09:23] LABS: ALBUMIN 2.7 G/DL (3.5-5.0); BUN (BLOOD UREA NITROGEN) 69 MG/DL (6-23); CALCIUM, SERUM 7.5 MG/DL (8.5-10.4); CHLORIDE, SERUM 102 MMOL/L (96-112); CO2 (CARBON DIOXIDE) 26 MMOL/L (24-34); CREATININE 8.15 MG/DL (0.70-1.30); GFR AFRICAN AMERICAN 8 ML/MIN (>=60); GFR NON AFRICAN AMERICAN 7 ML/MIN (>=60); GLUCOSE, SERUM 95 MG/DL (60-99); PHOSPHORUS, SERUM 8.5 MG/DL (2.5-4.5); POTASSIUM, SERUM 4.6 MMOL/L (3.5-5.3); SODIUM, SERUM 138 MMOL/L (135-148)
[2016-11-22] MEDS ORDERED: PHOSLO PO (16:48)
[2016-11-22] MEDS ORDERED: NORV5 PO (16:48)
[2016-11-22] MEDS ORDERED: TRANDAT100 PO (16:49)
[2016-11-24 14:33] LABS: ANTI-DNA FARR TECHNIQUE 3.9 IU/mL (<8.0)
== END 2016-11-22 18:18 | disposition home or self-care (01) | DRG 682 ==
LOC: ER 16:22 → MIC 16:29 → 4SO 11-18 18:11
PROVIDERS: Hospitalist; Internal Medicine Critical Care Medicine; Internal Medicine Nephrology; Nurse Practitioner; Radiology Radiation Oncology; Student in an Organized Health Care Education/Training Program
PROC: 06HM33Z Insertion of Infusion Device into Right Femoral Vein, Percutaneous Approach (ICD-10-PCS; 2016-11-17)
PROC: B54BZZA Ultrasonography of Right Lower Extremity Veins, Guidance (ICD-10-PCS; 2016-11-17)
PROC: 3E033GC Introduction of Other Therapeutic Substance into Peripheral Vein, Percutaneous Approach (ICD-10-PCS; 2016-11-17)
PROC: 5A1D00Z (ICD-10-PCS; 2016-11-19)
PROC: B549ZZA Ultrasonography of Inferior Vena Cava, Guidance (ICD-10-PCS; 2016-11-21)
PROC: 3E043GC Introduction of Other Therapeutic Substance into Central Vein, Percutaneous Approach (ICD-10-PCS; 2016-11-21)
PROC: 06H033Z Insertion of Infusion Device into Inferior Vena Cava, Percutaneous Approach (ICD-10-PCS; principal; 2016-11-21 17:15)
DX: I12.0 Hypertensive chronic kidney disease with stage 5 chronic kidney disease or end stage renal disease (principal); N18.6 End stage renal disease; N17.9 Acute kidney failure, unspecified; E87.2 Acidosis; E87.5 Hyperkalemia; D63.1 Anemia in chronic kidney disease; Z99.2 Dependence on renal dialysis; E55.9 Vitamin D deficiency, unspecified; R80.9 Proteinuria, unspecified; R31.9 Hematuria, unspecified; Z87.891 Personal history of nicotine dependence
CPT/HCPCS: 36558; 36600; 76775; 77001; 80048; 80053; 80069; 80074; 81001; 82306; 82550; 82570; 82607; 82728; 82746; 82805; 83036; 83516; 83516-59; 83605; 83615; 83690; 83735; 83970; 84156; 85025; 86160; 86225; 86255; 86334; 87389; 93005; 97161-GP; 97165-GO; 99285; A9270-GY; C1750; C1752; G0257; J0610; J0690; J2250; J3010